=== PATIENT | male | born 1995 | race Caucasian/White ===

== ENCOUNTER 2018-02-04 05:56 | Emergency (ER) | payer BC, OTHER ==
[~2018-02-04] VITALS: Ht 162.6 cm; Wt 50.7 kg
[~2018-02-04 05:56] MED LIST: IBUP-1050 PO; SERT-234 PO
[2018-02-04 05:59] VITALS: TEMP 36.7; Ht 162.6 cm; Wt 50.7 kg
[2018-02-04 06:16] VITALS: O2SAT 98
[2018-02-04 06:25] LABS: HEMATOCRIT 44.8 % (42-52); HEMOGLOBIN 16.3 g/dL (14.0-18.0); MEAN CELL VOLUME 94.1 fL (80-100); MEAN CORPUSCULAR HEMOGLOBIN 34.2 pg (25-34); MEAN CORPUSCULAR HGB CONC 36.4 g/dl (32-36); MEAN PLATELET VOLUME 9.6 fL (7.4-10.4); PLATELET COUNT 249 K/uL (130-400); RED CELL DISTRIBUTION WIDTH CV 11.7 % (11.5-14.5); RED CELL DISTRIBUTION WIDTH SD 39.5 fL (36.4-46.3); WHITE BLOOD COUNT 7.29 K/uL (4.8-10.8)
[2018-02-04 06:36] LABS: PTT PATIENT 28.8 SECONDS (21.0-31.0)
--- NOTE | 2018-02-04 06:41 | DIAGNOSTIC IMAGING REPORT ---
CHEST ONE VIEW PORTABLE CLINICAL HISTORY: Atypical chest pain COMPARISON STUDY: No previous studies for comparison. FINDINGS: The cardiac and mediastinal contours are normal. There is no evidence of focal pulmonary consolidation. There is no evidence of failure. No pleural effusions are visualized.[ No pneumothorax is visualized. IMPRESSION: No active disease in the chest. Electronically signed by: Paul Ross M.D. 02/04/2018 6:40 AM Dictated Date/Time: 02/04/2018 6:39 AM
[2018-02-04 06:47] LABS: ALBUMIN 4.9 gm/dl (3.4-5.0); ALKALINE PHOSPHATASE 63 U/L (45-117); ALT/SGPT 33 U/L (12-78); AST/SGOT 19 U/L (15-37); BLOOD UREA NITROGEN 14 mg/dl (7-18); CALCIUM 9.2 mg/dl (8.5-10.1); CARBON DIOXIDE 26 mmol/L (21-32); CKMB < 0.5 ng/ml (0.5-3.6); CREATININE 0.94 mg/dl (0.60-1.40); GLUCOSE 85 mg/dl (70-99); POTASSIUM 4.1 mmol/L (3.5-5.1); SODIUM 138 mmol/L (136-145); TOTAL PROTEIN 8.4 gm/dl (6.4-8.2)
--- NOTE | 2018-02-04 06:49 | EMERGENCY ROOM VISIT NOTE ---
History Report prepared by Ryan: Chris Castro Under the Supervision of: Dr. Bhanu Ni M.D. 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 Pt states he was "just sitting in my room when I had sudden pain in my back between by shoulder blades". Pt states he then went to lay down and he developed severe left sided chest pain. Denies SOB, diaphoresis or nausea with chest pain. Pt states he had a similar episode last week, but it went away after 45min. Pt reports pain does not change with inspiration/expiration. Denies cough or recent illness. Lungs sounds clear and equal bilaterally. Denies any significant PMH and pt takes no routine medications. History of Present Illness The patient is a 23 year old male who presents to the Emergency Room with complaints of constant left-sided chest pain that began an hour and forty-five minutes ago. Patient states the pain started in his back while he was sitting on a chair watching videos on his computer. Patient states that after the back pain started he then went to lie down. He states that the pain then began to radiate to the left-side of his chest after lying down. He describes the pain as "severe". Patient states that he "breaths fine" when lying down but states that it "feels like he can't breath". Patient denies any pain with breathing. He adds that he has had no recent trauma to his chest. Patient states that he is "prone to anxiety attacks" but states that his symptoms do not feel like an anxiety attack. Patient denies a history of heart or lung problems. He denies a history of asthma or diabetes. Patient is present with his mother. Mother states that the patient has a family history of thyroid and heart problems. Patient denies a history of any surgeries. Patient states that he does not smoke , drink alcohol, or use drugs. Patient denies feeling like his heart is racing or skipping. Patient denies nausea, diaphoresis, fevers, swelling in legs, cough , abdominal pain, and any rashes. Patient adds that he does not work or go to school. Mother states that the patient's PCP is Dr. Tucker. Source of History: patient Onset: Hour and forty-five minutes ago Position: chest (left) Symptom Intensity: severe Timing: constant Modifying Factors (Worsening): other (Lying down) Associated Symptoms: No fevers, No diaphoresis, No cough, No nausea, No abdominal pain, No rash Review of Systems See HPI for pertinent positives & negatives. A total of 10 systems reviewed and were otherwise negative. Past Medical & Surgical Medical Problems: (1) Cyclic vomiting syndrome (2) No known problems Old medical records were reviewed. Nurse's notes were reviewed and I agree with. Family History Cancer Diabetes mellitus Heart disease Kidney disease Kidney stones Social History Smoking Status: Never Smoker Alcohol Use: none Drug Use: none Marital Status: single Housing Status: lives with family Occupation Status: unemployed Current/Historical Medications Scheduled PRN Ibuprofen (Advil), 200-600 MG PO DIRECTED PRN for Pain or Fever Allergies Coded Allergies: No Known Allergies (Unverified , 02/04/18) Physical Exam Vital Signs Date Time Temp Pulse Resp B/P (MAP) Pulse Ox O2 Delivery O2 Flow Rate FiO2 02/04/18 07:42 63 12 110/69 96 Room Air 02/04/18 06:31 122/81 02/04/18 06:26 56 16 97 02/04/18 06:16 98 Room Air 02/04/18 06:16 98 Room Air 02/04/18 06:10 69 02/04/18 06:06 136/78 02/04/18 05:59 36.7 59 18 131/87 100 Room Air Physical Exam General: Non-ill appearing slender young male in no acute distress. HEENT: Normal cephalic atraumatic. Pupils are equal round and reactive to light. Extraocular movements are intact. Oropharynx is pink with moist mucous membranes. No swelling of the mouth lips or tongue. Neck: Supple with a midline trachea. No meningeal signs or stiffness, no JVD or bruits. No Stridor. Chest: Clear to auscultation bilaterally. No wheezes or rhonchi. No increased work of breathing. Heart: regular rate and rhythm. Abdomen: Soft nontender, nondistended without rebound guarding or rigidity. Extremities: No cyanosis clubbing or edema. No calf tenderness or assymetry Spine/Back. Non tender to palpation. No CVA tenderness Skin: Good turgor without rashes. Neurologic exam: Cranial nerves two through 12 are intact. Motor and sensation are intact and symmetrical throughout. Medical Decision & Procedures ER Provider Diagnostic Interpretation: Radiology results as stated below per my review and radiologist interpretation: CHEST ONE VIEW PORTABLE CLINICAL HISTORY: Atypical chest pain COMPARISON STUDY: No previous studies for comparison. FINDINGS: The cardiac and mediastinal contours are normal. There is no evidence of focal pulmonary consolidation. There is no evidence of failure. No pleural effusions are visualized.[ No pneumothorax is visualized. IMPRESSION: No active disease in the chest. Electronically signed by: Paul Ross M.D. 02/04/2018 6:40 AM Chest x-ray per my interpretation reveals no pneumothorax, failure, or infiltrate. Laboratory Results 02/04/18 06:15 02/04/18 06:15 Test 02/04/18 06:15 Red Blood Count 4.76 M/uL (4.7-6.1) Mean Corpuscular Volume 94.1 fL (80-100) Mean Corpuscular Hemoglobin 34.2 pg (25-34) Mean Corpuscular Hemoglobin Concent 36.4 g/dl (32-36) RDW Standard Deviation 39.5 fL (36.4-46.3) RDW Coefficient of Variation 11.7 % (11.5-14.5) Mean Platelet Volume 9.6 fL (7.4-10.4) Prothrombin Time 10.9 SECONDS (9.0-12.0) Prothromb Time International Ratio 1.0 (0.9-1.1) Activated Partial Thromboplast Time 28.8 SECONDS (21.0-31.0) Partial Thromboplastin Ratio 1.1 D-Dimer < 190 ug/L FEU (0-500) Anion Gap 6.0 mmol/L (3-11) Est Creatinine Clear Calc Drug Dose 89.1 ml/min Estimated GFR () 133.8 Estimated GFR (Non- 115.4 BUN/Creatinine Ratio 14.7 (10-20) Calcium Level 9.2 mg/dl (8.5-10.1) Total Bilirubin 0.6 mg/dl (0.2-1) Aspartate Amino Transf (AST/SGOT) 19 U/L (15-37) Alanine Aminotransferase (ALT/SGPT) 33 U/L (12-78) Alkaline Phosphatase 63 U/L (45-117) Total Creatine Kinase 71 U/L (39-308) Creatine Kinase MB < 0.5 ng/ml (0.5-3.6) Creatine Kinase MB Ratio (0-3.0) Bedside Troponin I < 0.030 ng/ml (0-0.045) Total Protein 8.4 gm/dl (6.4-8.2) Albumin 4.9 gm/dl (3.4-5.0) Globulin 3.5 gm/dl (2.5-4.0) Albumin/Globulin Ratio 1.4 (0.9-2) Laboratory studies as stated above per my review. ECG Per My Interpretation Indication: chest pain Rate (beats per minute): 73 Rhythm: normal sinus (with sinus arrhythmia) Findings: no acute ischemic change, other (Normal intervals) Comparison ECG Date: 10/03/2012 Change: Sinus arrhythmia is now present. ED Course 0633: Past medical records reviewed. The patient was evaluated in room B4B, and a complete history and physical examination were performed. 0759: Upon reevaluation, the patient is resting comfortably. I discussed the results and treatment plan with him. He verbalized agreement of the treatment plan. The patient was discharged home. Medical Decision Differentials include, but are not limited to; acute coronary artery syndrome, arrhythmia, pneumothorax, PE, and electrolyte or metabolic abnormality. This patient comes in as described above. He is placed in room B4. He is here for treatment and evaluation of left-sided chest pain. He looks well on exam and has stable vital signs. He has no significant cardiac or pulmonary risk factors he has a history of anxiety but feels this is different. It is not reportedly tender. He has had no fever or cough or trauma. Chest x-ray was obtained and shows no pneumothorax or acute pathology. EKG does not show any significant arrhythmia or ischemia. Blood work was unremarkable. He has no white count or fever to suggest infection. He has no acute electrolyte or metabolic abnormalities. Troponin and CK are both within normal limits. He has nothing to suggest myocarditis or any definite pericarditis. His d-dimer is negative and a low pretest probability setting makes it highly unlikely. I do not think is likely aortic disease. This may be more either musculoskeletal or related anxiety or GI issues. The patient and his mother thinks that he had some mild pain and just got anxious. The patient was reassured. He was encouraged to return if: increasing pain, shortness of breath, worsening of symptoms, any new problems or concerns. The patient and his mother who I talked at length are happy to plan and he was discharged home. Medication Reconcilliation Current Medication List: was personally reviewed by me Blood Pressure Screening Patient's blood pressure: Normal blood pressure Blood pressure disposition: Did not require urgent referral Impression Primary Impression: Precordial chest pain Additional Impression: Anxiety Scribe Attestation The scribe's documentation has been prepared under my direction and personally reviewed by me in its entirety. I confirm that the note above accurately reflects all work, treatment, procedures, and medical decision making performed by me. Departure Information Dispostion Home / Self-Care Referrals No Doctor, Assigned (PCP) Forms HOME CARE DOCUMENTATION FORM, IMPORTANT VISIT INFORMATION Patient Instructions My [facility] Additional Instructions Rest. Return if: Increasing pain, worsening of symptoms, shortness of breath, fever or chills, any new problems or concerns Follow-up with your doctor Monday for recheck May use [id number] ibuprofen if needed for pain Problem Qualifiers
[2018-02-04 07:42] VITALS: BP 110/69; PULSE 63; O2SAT 96
== END 2018-02-04 08:02 | disposition home or self-care (01) ==
LOC: C.EDB 05:57
DX: R07.2 Precordial pain (principal); F41.9 Anxiety disorder, unspecified